=== PATIENT | male | born 1990 | race Caucasian/White ===

== ENCOUNTER 2016-11-04 14:17 | Emergency (ER) | payer OTHER ==
[2016-11-04 14:25] VITALS: TEMP 98.8
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
[2016-11-04] MEDS ORDERED: IBUPROFEN 200 MG TAB PO ONE (15:16)
[2016-11-04 15:46] VITALS: BP 130/75; PULSE 88; RESP 16; O2SAT 96
== END 2016-11-04 15:45 | disposition home or self-care (01) ==
DX: T33.822A Superficial frostbite of left foot, initial encounter (principal); X31.XXXA Exposure to excessive natural cold, initial encounter; Y99.8 Other external cause status; Y93.01 Activity, walking, marching and hiking

== ENCOUNTER 2017-01-24 11:00 | Emergency (ER) | payer OTHER ==
[2017-01-24 11:09] VITALS: O2SAT 97
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
[2017-01-24 13:15] VITALS: BP 134/64; PULSE 72; RESP 18; TEMP 98.1
== END 2017-01-24 13:22 | disposition home or self-care (01) ==
DX: S06.0X0A Concussion without loss of consciousness, initial encounter (principal); S29.9XXA Unspecified injury of thorax, initial encounter; W18.09XA Striking against other object with subsequent fall, initial encounter; Y92.009 Unspecified place in unspecified non-institutional (private) residence as the place of occurrence of the external cause

== ENCOUNTER 2017-03-04 17:14 | Emergency (ER) | payer OTHER ==
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
[2017-03-04 18:38] LABS: % IMMATURE GRANULYOCYTES 0.4 % (0.0-1.1); ABSOLUTE IMMATURE GRANULOCYTES 0.03 10^3/uL (0.00-0.10); ADD DIFF? NO; ADD MORPH? NO; ADD SCAN? NO; ATYPICAL LYMPHOCYTE FLAG 0 (0-99); FRAGMENT RBC FLAG 0 (0-99); HEMATOCRIT 47.3 % (40.0-51.0); HEMOGLOBIN 16.3 g/dL (13.7-17.5); LEFT SHIFT FLG 30 (0-99); LIPEMIA HEMOLYSIS FLAG 90 (0-99); MEAN CELL HEMOGLOBIN CONCENTR. 34.5 g/dL (32.4-36.7); MEAN CELL VOLUME 87.1 fL (81.5-99.8); MEAN PLATELET VOLUME 10.3 fL (8.7-11.7); PLATELET CLUMPS FLAG 20 (0-99); PLATELET COUNT 216 10^3/uL (150-400); RED BLOOD CELL COUNT 5.43 10^6/uL (4.40-6.38); RED CELL DISTRIBUTION WIDTH 12.3 % (11.5-15.2)
[2017-03-04 19:06] LABS: ANION GAP 14 mEq/L (8-16); CALCIUM 9.4 mg/dL (8.5-10.4); CARBON DIOXIDE 23 mEq/l (22-31); CHLORIDE 102 mEq/L (97-110); CREATININE 0.8 mg/dL (0.7-1.3); ETHANOL SERUM < 10 mg/dL (0-10); GLOMERULAR FILTRATION RATE > 60; GLUCOSE 109 mg/dL (70-100); POTASSIUM 3.8 mEq/L (3.5-5.2); SODIUM 139 mEq/L (134-144)
[2017-03-04] MEDS ORDERED: risperiDONE 2 MG TAB PO ONE (22:55)
[2017-03-04] MEDS ORDERED: LORazepam 0.5 MG TAB PO ONE (22:55)
[2017-03-04] MEDS ORDERED: LORazepam 1 MG TAB ONE (22:58)
[2017-03-04] MEDS ORDERED: LORazepam 1 MG TAB PO ONE (23:14)
[2017-03-05 07:46] VITALS: RESP 14
[2017-03-05 12:30] VITALS: BP 114/83; PULSE 97; TEMP 98.2; O2SAT 95
== END 2017-03-05 12:55 | disposition home or self-care (01) ==
DX: F91.9 Conduct disorder, unspecified (principal)
CPT/HCPCS: 80305; G0480

== ENCOUNTER 2017-05-23 19:52 | Emergency (ER) | payer OTHER ==
[2017-05-23 20:06] VITALS: BP 157/85; PULSE 88; RESP 18; TEMP 98.4; O2SAT 96
[2017-05-23 20:17] LABS: % IMMATURE GRANULYOCYTES 0.6 % (0.0-1.1); ABSOLUTE IMMATURE GRANULOCYTES 0.04 10^3/uL (0.00-0.10); ADD DIFF? NO; ADD MORPH? NO; ADD SCAN? NO; ATYPICAL LYMPHOCYTE FLAG 10 (0-99); FRAGMENT RBC FLAG 0 (0-99); HEMATOCRIT 47.3 % (40.0-51.0); HEMOGLOBIN 16.4 g/dL (13.7-17.5); LEFT SHIFT FLG 0 (0-99); LIPEMIA HEMOLYSIS FLAG 90 (0-99); MEAN CELL HEMOGLOBIN 30.4 pg (27.9-34.1); MEAN CELL HEMOGLOBIN CONCENTR. 34.7 g/dL (32.4-36.7); MEAN CELL VOLUME 87.6 fL (81.5-99.8); MEAN PLATELET VOLUME 10.4 fL (8.7-11.7); PLATELET CLUMPS FLAG 0 (0-99); PLATELET COUNT 224 10^3/uL (150-400); RED CELL DISTRIBUTION WIDTH 12.4 % (11.5-15.2)
[2017-05-23 20:31] LABS: ANION GAP 16 mEq/L (8-16); CALCIUM 9.3 mg/dL (8.5-10.4); CARBON DIOXIDE 20 mEq/l (22-31); CHLORIDE 107 mEq/L (97-110); CREATININE 0.9 mg/dL (0.7-1.3); ETHANOL SERUM < 10 mg/dL (0-10); GLOMERULAR FILTRATION RATE > 60; GLUCOSE 108 mg/dL (70-100); POTASSIUM 3.6 mEq/L (3.5-5.2); SODIUM 143 mEq/L (134-144)
--- NOTE | 2017-05-24 00:52 | EDPHY ---
H & P Stated Complaint: anxiety, hyperactivity, "people making me angry"; would like [facility] Time Seen by Provider: 05/23/17 20:41 HPI/ROS: CHIEF COMPLAINT: Feeling anxious HISTORY OF PRESENT ILLNESS: This is a 27-year-old male presenting to the emergency room complaining of anxiety possible reaction to meds. Patient has an extensive psych history, denies any suicidal ideation homicidal ideation but he does feel his medication "it is making angry". Patient's therapist is also present in the room with patient, he reports" this is patient has normal behavior with his medication, patient has also just moved into an apartment with roommates new environmental stressors" patient states his roommates bother him, has been on same medications for 4 years. No shortness of breath no chest pain REVIEW OF SYSTEMS: Constitutional: No fever, no chills. Anxious Eyes: No discharge. No blurred vision ENT: No sore throat. Cardiovascular: No chest pain, no palpitations. Respiratory: No cough, no shortness of breath. Gastrointestinal: No abdominal pain, no vomiting. Genitourinary: No hematuria. Musculoskeletal: No back pain. Skin: No rashes. Neurological: No headache. Source: Patient, Family, Old records - Medical/Surgical History Hx Asthma: No Hx Chronic Respiratory Disease: No Hx Diabetes: No Hx Cardiac Disease: No Hx Renal Disease: No Hx Cirrhosis: No Hx Alcoholism: No Hx HIV/AIDS: No Hx Splenectomy or Spleen Trauma: No Other PMH: R elbow surgery, insomnia, hypersensitive skin, schizoaffective disorder - Social History Smoking Status: Never smoked - Physical Exam Exam: General Appearance: Alert, no distress. Non ill-appearing Eyes: Pupils equal and round no pallor or injection. ENT, Mouth: Mucous membranes moist. Respiratory: There are no retractions, lungs are clear to auscultation. Cardiovascular: Regular rate and rhythm. Gastrointestinal: Abdomen is soft and nontender, no masses, bowel sounds normal. Neurological: No focal deficits. Answering questions appropriately Skin: Warm and dry, no rashes. Musculoskeletal: Neck is supple nontender. Extremities: symmetrical, full range of motion. Psychiatric: Patient is oriented X 3, there is no agitation. Calm. Acting appropriately Constitutional: Initial Vital Signs Temperature (C) 36.9 C 05/23/17 20:04 Heart Rate 88 05/23/17 20:04 Respiratory Rate 18 05/23/17 20:04 Blood Pressure 157/85 H 05/23/17 20:04 O2 Sat (%) 96 05/23/17 20:04 O2 Delivery Mode Room Air Allergies/Adverse Reactions: No Known Allergies Allergy (Unverified 05/23/17 20:02) Home Medications: Medication Instructions Recorded Ativan 05/23/17 Risperdal 05/23/17 Medical Decision Making ED Course/Re-evaluation: We have discussed a plan of care with patient and his therapist: Patient is being discharged home with therapist. Also discussed if patient feels overwhelmed become suicidal homicidal for him to call EMS to come to the ER. Patient agree with this plan, discharge home---> stable, no suicidal ideation no homicidal ideation Differential Diagnosis: Other differential diagnosis considered but not limited to psychosis, suicidal ideation, homicidal ideation - Data Points Laboratory Results: Laboratory Results 05/23/17 19:55 05/23/17 19:55 05/23/17 05/23/17 05/23/17 20:02 19:55 19:55 WBC 7.19 10^3/uL 10^3/uL (3.80-9.50) RBC 5.40 10^6/uL 10^6/uL (4.40-6.38) Hgb 16.4 g/dL g/dL (13.7-17.5) Hct 47.3 % % (40.0-51.0) MCV 87.6 fL fL (81.5-99.8) MCH 30.4 pg pg (27.9-34.1) MCHC 34.7 g/dL g/dL (32.4-36.7) RDW 12.4 % % (11.5-15.2) Plt Count 224 10^3/uL 10^3/uL (150-400) MPV 10.4 fL fL (8.7-11.7) Neut % (Auto) 61.1 % % (39.3-74.2) Lymph % (Auto) 30.6 % % (15.0-45.0) [place] % (Auto) 6.5 % % (4.5-13.0) Eos % (Auto) 0.6 % % (0.6-7.6) Baso % (Auto) 0.6 % % (0.3-1.7) Nucleat RBC Rel Count 0.0 % % (0.0-0.2) Absolute Neuts (auto) 4.40 10^3/uL 10^3/uL (1.70-6.50) Absolute Lymphs (auto) 2.20 10^3/uL 10^3/uL (1.00-3.00) Absolute Monos (auto) 0.47 10^3/uL 10^3/uL (0.30-0.80) Absolute Eos (auto) 0.04 10^3/uL 10^3/uL (0.03-0.40) Absolute Basos (auto) 0.04 10^3/uL 10^3/uL (0.02-0.10) Absolute Nucleated RBC 0.00 10^3/uL 10^3/uL (0-0.01) Immature Gran % 0.6 % % (0.0-1.1) Immature Gran # 0.04 10^3/uL 10^3/uL (0.00-0.10) Sodium 143 mEq/L mEq/L (134-144) Potassium 3.6 mEq/L mEq/L (3.5-5.2) Chloride 107 mEq/L mEq/L (97-110) Carbon Dioxide 20 mEq/l L mEq/l (22-31) Anion Gap 16 mEq/L mEq/L (8-16) BUN 11 mg/dL mg/dL (7-23) Creatinine 0.9 mg/dL mg/dL (0.7-1.3) Estimated GFR > 60 Glucose 108 mg/dL H mg/dL (70-100) Calcium 9.3 mg/dL mg/dL (8.5-10.4) Urine Opiates Screen NEGATIVE (NEGATIVE) Urine Barbiturates NEGATIVE (NEGATIVE) Ur Phencyclidine Scrn NEGATIVE (NEGATIVE) Ur Amphetamine Screen NEGATIVE (NEGATIVE) U Benzodiazepines Scrn NEGATIVE (NEGATIVE) Urine Cocaine Screen NEGATIVE (NEGATIVE) U Marijuana (THC) Screen NEGATIVE (NEGATIVE) Ethyl Alcohol < 10 mg/dL mg/dL (0-10) Departure - Departure Disposition: Home, Routine, Self-Care Clinical Impression: Anxiety Condition: Fair Instructions: Anxiety (ED) Additional Instructions: 1. We have discussed using your therapist for therapy to conversation, if at any time feeling agitated your therapist wants you to call him 2. Take medications as prescribed 3. If at any point time you feel urine crisis feeling suicidal or homicidal call 911 to come to the ER Referrals: ERIC PRIEST [Primary Care Provider] - As per Instructions
== END 2017-05-23 21:39 | disposition home or self-care (01) ==
LOC: EDUNIT#
DX: F41.9 Anxiety disorder, unspecified (principal)
CPT/HCPCS: 80305; G0480